=== PATIENT | female | born 2000 | race African-American/Black ===

== ENCOUNTER 2020-12-10 16:37 | Inpatient (IN) ==
[2020-12-10] MEDS ORDERED: ONDANSETRON 4 MG/2 ML VIAL IV PRN ×2 (16:46→17:27)
[2020-12-10] MEDS ORDERED: miSOPROStoL 200 MCG TABLET ONE (16:48)
[2020-12-10] MEDS ORDERED: METHYLERGONOVINE 0.2 MG/1 ML AMP ONE (16:49)
[2020-12-10] MEDS ORDERED: CARBOPROST TROMETHAMINE 250 MCG/ML AMP IM ONE (16:49)
[2020-12-10] MEDS ORDERED: OXYTOCIN/LR 30 UNIT/1,000 ML BAG IV ONE (16:49)
[2020-12-10] MEDS ORDERED: LACTATED RINGERS 1,000 ML IV SCH (17:00)
[2020-12-10] MEDS ORDERED: MEPERIDINE 50 MG/1 ML VIAL ONE (17:06)
[2020-12-10] MEDS ORDERED: MEPERIDINE 50 MG/1 ML VIAL IV ONE (17:08)
[2020-12-10 17:13] LABS: Cord Venous Blood HCO3 19.8 MMOL/L; Cord Venous Blood PCO2 35.7 MMHG; Cord Venous Blood PO2 33.3
[2020-12-10] MEDS ORDERED: LANOLIN 50% CREAM 0.3 OZ TUBE TOP PRN (17:27)
[2020-12-10] MEDS ORDERED: BENZOCAINE 20%/MENTHOL 0.5% SPRAY 56 GM CAN TOP PRN (17:27)
[2020-12-10] MEDS ORDERED: ACETAMINOPHEN 325 MG TABLET PO PRN (17:27)
[2020-12-10] MEDS ORDERED: OXYTOCIN/LR 20 UNIT/1,000 ML BAG IV ONE (17:27)
[2020-12-10] MEDS ORDERED: HYDROCORTISONE 2.5% RECTAL CREAM 30 GM TUBE TOP PRN (17:27)
[2020-12-10] MEDS ORDERED: RHO(D) IMMUNE GLOBULIN 300 MCG SYRINGE IM ONE (17:27)
[2020-12-10] MEDS ORDERED: IBUPROFEN 800 MG TABLET PO PRN (17:27)
[2020-12-10] MEDS ORDERED: MEASLES/MUMPS/RUBELLA VACCINE 0.5 ML VIAL SUBCUT ONE (17:27)
[2020-12-10] MEDS ORDERED: WITCH HAZEL PADS 100/JAR TOP PRN (17:27)
[2020-12-10] MEDS ORDERED: BISACODYL 10 MG SUPP RECTAL PRN (17:27)
[2020-12-10] MEDS ORDERED: oxyCODONE/ACETAMINOPHEN 5-325 MG TABLET PO PRN ×2 (17:27)
[2020-12-10] MEDS ORDERED: DIPH/TET/ACEL PERT BOOSTER VACCINE 0.5 ML VIAL IM ONE (17:27)
[2020-12-10 18:28] LABS: Albumin 2.6 G/DL (3.4-5.0); Bilirubin,Total 0.4 MG/DL (0.20-1.00); Calcium 8.9 MG/DL (8.5-10.1); Osmolality,Calculated 263.4 MOS/KG (273-304); Potassium 3.9 MMOL/L (3.5-5.1); Total Protein 7.2 G/DL (6.4-8.2)
[2020-12-10 19:18] LABS: Basophils % 0.2 % (0.0-0.8); Eosinophils % 0.1 % (0.00-10.9); Hematocrit 24.2 VOL% (35.7-47.0); Hemoglobin 6.7 GM/DL (12.0-16.0); Immature Granulocytes Absolute 0.18 #; Lymphocytes % 5.6 % (21.3-54.2); Mean Corpuscular HGB Conc 27.7 GM/DL (32-36); Mean Corpuscular Volume 66.7 FL (87-102); Monocytes % 3.9 % (1.7-12.7); NRBC # 0.03 10*3/uL; Neutrophils % 89.2 % (38.7-73.9); Platelet Count 296 T/CUMM (130-400); Red Blood Count 3.63 MC/CUMM (3.8-5.5); Red Cell Distribution Width 21.7 % (9.3-17.3); White Blood Count 17.2 T/CUMM (4-12)
[2020-12-10] MEDS ORDERED: SODIUM CHLORIDE 0.9% 1,000 ML IV PRN ×2 (20:16)
[2020-12-10 21:55] LABS: Hypochromasia 1+
[2020-12-10 21:56] LABS: Microcytosis 1+
[2020-12-10 22:08] LABS: Polychromasia Few
[2020-12-10 22:09] LABS: Platelet Estimate Adequate
[2020-12-11 05:56] LABS: Basophils % 0.1 % (0.0-0.8); Eosinophils % 0.1 % (0.00-10.9); Hematocrit 29.9 VOL% (35.7-47.0); Hemoglobin 9.3 GM/DL (12.0-16.0); Immature Granulocytes % 0.6 %; Immature Granulocytes Absolute 0.11 #; Lymphocytes # 1.7 10*3/uL (1.4-4.0); Mean Corpuscular HGB Conc 31.1 GM/DL (32-36); Mean Corpuscular Volume 68.9 FL (87-102); Mean Platelet Volume 10.4 FL (9.6-12.0); Monocytes % 5.8 % (1.7-12.7); NRBC # 0.03 10*3/uL; Neutrophils % 83.4 % (38.7-73.9); Platelet Count 268 T/CUMM (130-400); Red Blood Count 4.34 MC/CUMM (3.8-5.5); Red Cell Distribution Width 24.9 % (9.3-17.3); White Blood Count 17.1 T/CUMM (4-12)
[2020-12-11 07:01] LABS: Hypochromasia 4+; Microcytosis 4+; Polychromasia Slight
[2020-12-11 07:02] LABS: Ovalocytes Slight; Platelet Estimate Normal
[2020-12-11] MEDS: FERROUS SULFATE 325 MG TABLET PO SCH ×2 (08:43→20:46)
[2020-12-11] MEDS: DOCUSATE SODIUM 100 MG CAPSULE PO SCH ×3 (08:44→20:46)
[2020-12-12 07:32] VITALS: BP 132/92
[2020-12-12] MEDS: DOCUSATE SODIUM 100 MG CAPSULE PO SCH (07:51)
[2020-12-12] MEDS: FERROUS SULFATE 325 MG TABLET PO SCH (07:52)
== END 2020-12-12 12:10 | disposition home or self-care (01) | DRG 560 ==
LOC: N.LDOUT 16:37 → N.LD 16:39 → N.OB 22:57
PROVIDERS: ADMIT Obstetrics & Gynecology; ATTEND Obstetrics & Gynecology